=== PATIENT | female | born 1940 | race Caucasian/White ===

== ENCOUNTER 2017-11-03 12:50 | Emergency (ER) | payer OTHER, SELFPAY ==
[2017-11-03 12:54] VITALS: BP 123/67; PULSE 80; RESP 16; TEMP 37.9; O2SAT 98; BMI 29.8
--- NOTE | 2017-11-03 13:20 | DI.RAD.S_ITS ---
PROCEDURE: XR FOOT LT MIN 3V INDICATIONS: Ground level fall 1 week ago continued pain in left foot TECHNIQUE: 3 views of the foot were acquired. COMPARISON: None FINDINGS: Bones: No fractures or dislocations. No suspicious bony lesions. Degenerative joint disease is most evident at the tarsometatarsal junctions Soft tissues: No tibiotalar joint effusion. Achilles tendon appears normal. IMPRESSION: Tarsometatarsal osteoarthritis. No fracture is seen. Dictated by: Stephen Van M.D. on 11/03/2017 at 14:01 Approved by: Stephen Van M.D. on 11/03/2017 at 14:06
[2017-11-03 14:13] VITALS: BP 111/56; PULSE 72; RESP 14; TEMP 36.6; O2SAT 96
[2017-11-03] MEDS: ONDANSETRON 4 MG ODT PO (14:41)
[2017-11-03 14:59] LABS: Appearance Urine UA SL CLOUDY; Bilirubin Urine UA NEGATIVE (NEGATIVE); Color Urine UA YELLOW; Glucose Urine UA NEGATIVE (Normal); Ketones Urine UA NEGATIVE (NEGATIVE); Leukocyte Esterase Urine UA 2+ (NEGATIVE); Nitrite Urine UA POSITIVE (Negative); Occult Blood Urine UA TRACE-INTACT (Negative); Protein Urine UA NEGATIVE (Negative); Specific Gravity Urine UA 1.015 (1.000-1.035)
[2017-11-03 15:14] LABS: Bacteria Urine Moderate (10-30); RBC Urine 1-5/HPF (0-5/HPF); Squamous Epithelial Cell Urine 0-1 /HPF; WBC Urine 30-100/HPF (0-5/HPF)
[2017-11-03 15:15] LABS: Culture Indicated Urine Specimen Cultured
--- NOTE | 2017-11-03 15:31 | ED_ITS ---
HPI - Extremity Injury (Lower) <VICKI Giraldo - Last Filed: 11/03/17 22:22> General Chief Complaint: Extremity Injury, Lower Stated Complaint: Left Hip Swelling / Pain Time Seen by Provider: 11/03/17 13:07 Source: patient Mode of arrival: EMS Limitations: no limitations History of Present Illness HPI Narrative: 77-year-old female here for complaint of pain into her left foot over the past week. Patient states she had a ground level fall last week and suffered a left broken hip. She was seen in [facility] in [facility] and had surgery to her left hip. She states she does not have any complications to her left hip. She reports she has had ongoing left foot pain since this fall and she is concerned she may have broke her foot during the fall. She denies any other concerns or complaints at this time. Positive p.o. intake. She states she has a Peres catheter that was placed while she was in the hospital due to incontinence and is currently waiting to follow up with Urology for further evaluation MD complaint: foot injury Related Data Home Medications Medication Instructions Recorded Confirmed atenolol 50 mg PO DAILY #0 02/27/11 11/03/17 cetirizine 10 mg PO QDAY #0 02/27/11 11/03/17 potassium chloride 50 meq PO DAILY #0 02/27/11 11/03/17 levothyroxine [Synthroid] 0.05 mg PO QDAY #0 06/19/12 11/03/17 zolpidem [Ambien] 10 mg PO BEDTIME PRN #0 05/27/16 11/03/17 acetaminophen 1 - 2 cap PO Q4H PRN MDD 3000 mg 11/03/17 11/03/17 aspirin 81 mg PO BID 11/03/17 11/03/17 bisacodyl 5 - 10 mg PO PRN PRN 11/03/17 11/03/17 bisacodyl 10 mg LA DAILY PRN 11/03/17 11/03/17 docusate sodium 250 mg PO BID 11/03/17 11/03/17 magnesium hydroxide [Milk of 30 ml PO PRN PRN 11/03/17 11/03/17 Magnesia] ondansetron 4 mg PO Q8H PRN 11/03/17 11/03/17 oxycodone 5 mg PO Q4H PRN 11/03/17 11/03/17 oxycodone 10 mg PO Q4H PRN 11/03/17 11/03/17 oxycodone 15 mg PO Q4H PRN 11/03/17 11/03/17 pantoprazole 40 mg PO QPM 11/03/17 11/03/17 sennosides [senna] 1 - 2 tab PO DAILY 11/03/17 11/03/17 sodium phosphates [Fleet Enema] 1 ea LA PRN PRN 11/03/17 11/03/17 spironolactone 25 mg PO DAILY 11/03/17 11/03/17 tuberculin PPD [Aplisol] 0.1 ml INTRADERMAL .ONCE 11/03/17 11/03/17 Previous Rx's Medication Instructions Recorded ciprofloxacin HCl 500 mg PO BID #14 tab 11/03/17 Allergies Allergy/AdvReac Type Severity Reaction Status Date / Time amoxicillin [AMOXICILLIN] Allergy Severe RASH Unverified 07/02/17 12:04 Sulfa (Sulfonamide Allergy Severe WELTS Unverified 07/02/17 12:04 Antibiotics) tetanus toxoid, adsorbed Allergy Severe SWELLING Unverified 07/02/17 12:04 AT SITE, ARM SWELLING adhesive Allergy Mild RASH Unverified 07/02/17 12:04 Penicillins [PENICILLINS] Allergy Unknown RASH-UNKNOWN Unverified 07/02/17 12:04 SEVERITY PER PT morphine AdvReac Severe N/V Unverified 07/02/17 12:04 SWELLING AT SITE codeine AdvReac Mild ITCHING, Unverified 07/02/17 12:04 NAUSEA, CONSTIPATION propoxyphene AdvReac Mild N/V Unverified 07/02/17 12:04 Review of Systems <VICKI Giraldo - Last Filed: 11/03/17 22:22> Constitutional Denies chills, Denies fever(s), Denies lethargy and Denies weakness Eyes Denies change in vision, Denies eye discharge, Denies irritation and Denies loss of vision ENT Ears, Nose, Mouth, and Throat: Denies change in voice, Denies neck pain and Denies sore throat Cardiovascular Denies chest pain, Denies irregular heart rhythm, Denies lightheadedness, Denies palpitations, Denies dyspnea, Denies dyspnea on exertion and Denies orthopnea Respiratory Denies cough, Denies dyspnea, Denies dyspnea on exertion and Denies wheezing Gastrointestinal Gastrointestinal: Denies abdominal pain, Denies change in bowel habits, Denies diarrhea, Denies nausea and Denies vomiting Genitourinary Denies hematuria, Denies flank pain, Denies urinary incontinence and Denies urinary urgency Musculoskeletal Denies neck pain Comments: Left foot pain Integumentary/Breasts Denies pruritus, Denies erythema, Denies rash and Denies wounds Neurologic Denies confusion, Denies loss of vision and Denies weakness Psychiatric Denies anxiety, Denies confusion, Denies depression, Denies homicidal ideation and Denies suicidal ideation Endocrine Denies palpitations Hematologic/Lymphatic Denies easy bruising Allergic/Immunologic Denies wheezing Exam <VICKI Giraldo - Last Filed: 11/03/17 22:22> Initial Vital Signs Initial Vital Signs: Vital Signs Temperature 100.3 F H 11/03/17 12:54 Pulse Rate 80 11/03/17 12:54 Respiratory Rate 16 11/03/17 12:54 Blood Pressure 123/67 H 11/03/17 12:54 Pulse Oximetry 98 11/03/17 12:54 Const General: cooperative and well developed Nutritional Appearance: well nourished Orientation: alert, awake, oriented x3 and not confused [facility] Mouth: oral mucosae normal and moist mucous membranes Eyes Conjunctivae: conjunctivae normal Sclera: sclerae normal Pupils: PERRL EOM: EOM intact bilaterally Resp Effort & Inspection: normal respiratory effort, able to speak in complete sentences, no respiratory distress and no use of accessory muscles Auscultation: clear to auscultation bilaterally, no rales, no rhonchi and no wheezes Cardio Rate: regular rate Rhythm: regular rhythm Heart Sounds: no click, no gallops, no murmurs and no rubs Pulses: normal peripheral pulses GI Inspection: non-distended Palpation: soft, no hepatosplenomegaly, No guarding, No pulsatile mass and No tender Auscultation: normal bowel sounds Skin General: no rashes or lesions noted, No jaundice and No petechiae Neuro General: alert, oriented x3, gait normal and no focal motor deficits Speech: speech normal Extrem Other: Slight tenderness into the proximal dorsal aspect of the left foot. No swelling. No ecchymosis. No erythema. Distal sensation is intact. Distal range of motion is intact distal pulses intact <Armin Booker DO - Last Filed: 11/05/17 09:19> Initial Vital Signs Initial Vital Signs: Vital Signs Temperature 100.3 F H 11/03/17 12:54 Pulse Rate 80 11/03/17 12:54 Respiratory Rate 16 11/03/17 12:54 Blood Pressure 123/67 H 11/03/17 12:54 Pulse Oximetry 98 11/03/17 12:54 Course <VICKI Giraldo - Last Filed: 11/03/17 22:22> Orders Ordered: Discontinued Medications Ondansetron HCl (Zofran Odt) 4 mg PO NOW ONE Stop: 11/03/17 14:38 Last Admin: 11/03/17 14:41 Dose: 4 mg Vital Signs - 8 hr 11/03/17 12:54 11/03/17 14:13 Temperature 100.3 F H 97.8 F Pulse Rate 80 72 Respiratory Rate 16 14 Blood Pressure 123/67 H Blood Pressure [Left Arm] 111/56 L Pulse Oximetry 98 96 <Armin Booker DO - Last Filed: 11/05/17 09:19> Orders Ordered: Discontinued Medications Ondansetron HCl (Zofran Odt) 4 mg PO NOW ONE Stop: 11/03/17 14:38 Last Admin: 11/03/17 14:41 Dose: 4 mg Vital Signs - 8 hr 11/03/17 12:54 11/03/17 14:13 Temperature 100.3 F H 97.8 F Pulse Rate 80 72 Respiratory Rate 16 14 Blood Pressure 123/67 H Blood Pressure [Left Arm] 111/56 L Pulse Oximetry 98 96 MDM - Extremity Injury (Lower) <VICKI Giraldo - Last Filed: 11/03/17 22:22> Lab Data Lab Results 11/03/17 Range/Units 14:37 Urine Color Yellow Urine Appearance Sl cloudy Urine pH 7.0 (4.5-8.0) Ur Specific [place] 1.015 (1.000-1.035) Urine Protein Negative (Negative) Urine Glucose (UA) Negative (Normal) g/dL Urine Ketones Negative (NEGATIVE) Urine Occult Blood Trace-intact (Negative) Urine Nitrate Positive H (Negative) Urine Bilirubin Negative (NEGATIVE) Urine Urobilinogen 1.0 (0.2) E.U./dL Ur Leukocyte Esterase 2+ H (NEGATIVE) Urine RBC 1-5/hpf (0-5/HPF) Urine WBC 30-100/hpf H (0-5/HPF) Ur Squamous Epith Cells 0-1 /hpf Urine Bacteria Moderate (10-30) H (None) Ur Culture Indicated? Specimen cultured Micro UA Comment Not Reportable MDM Narrative Medical decision making narrative: X-ray the left foot was obtained was negative for any acute findings. X-ray does show arthritis to the tarsal area suspicious for her discomfort to the area and was probably exacerbated by the fall. Patient had low-grade fever 100 on arrival. Urinalysis indicates urinary tract infection. She is covered with ciprofloxacin, follow up with primary care provider in the next couple days for re-evaluation. Follow up with Neurology. Hip area appears to be healing well with no complications. Follow up with Orthopedics as scheduled. Currently prescribed pain management regimen as directed for pain. Return emergency room for any worsening symptoms. <Armin Booker DO - Last Filed: 11/05/17 09:19> Lab Data Lab Results 11/03/17 Range/Units 14:37 Urine Color Yellow Urine Appearance Sl cloudy Urine pH 7.0 (4.5-8.0) Ur Specific [place] 1.015 (1.000-1.035) Urine Protein Negative (Negative) Urine Glucose (UA) Negative (Normal) g/dL Urine Ketones Negative (NEGATIVE) Urine Occult Blood Trace-intact (Negative) Urine Nitrate Positive H (Negative) Urine Bilirubin Negative (NEGATIVE) Urine Urobilinogen 1.0 (0.2) E.U./dL Ur Leukocyte Esterase 2+ H (NEGATIVE) Urine RBC 1-5/hpf (0-5/HPF) Urine WBC 30-100/hpf H (0-5/HPF) Ur Squamous Epith Cells 0-1 /hpf Urine Bacteria Moderate (10-30) H (None) Ur Culture Indicated? Specimen cultured Micro UA Comment Not Reportable Discharge Plan Departure Patient Disposition: Home, Self-Care Clinical Impression: Acute pain of left foot, Urinary tract infection Discharge Date/Time: 11/03/17 15:45 Interventions: ED Discharge Assessment Last Done: 11/03/17 15:44 Instructions: DI for Foot Pain Activity Restrictions/Additional Instructions: X-ray the left foot was obtained was negative for any acute findings. X-ray does show arthritis to the areas were you do have discomfort and is probably exacerbated by the fall. Urinalysis indicates urinary tract infection. Urine prescribed an antibiotic called ciprofloxacin use as directed. Follow up with primary care provider in the next couple days for re-evaluation. Follow up with Neurology. Hip area appears to be healing well with no complications. Follow up with Orthopedics as scheduled. Currently prescribed pain management regimen as directed for pain. Return emergency room for any worsening symptoms. Prescriptions: New ciprofloxacin HCl 500 mg tablet 500 mg PO BID Qty: 14 RF: 0 No Action cetirizine 10 MG tablet 10 mg PO QDAY Qty: 0 RF: 0 potassium chloride 10 MEQ capsule, extended release 50 meq PO DAILY Qty: 0 RF: 0 atenolol 50 MG tablet 50 mg PO DAILY Qty: 0 RF: 0 levothyroxine [Synthroid] 50 MCG tablet 0.05 mg PO QDAY Qty: 0 RF: 0 zolpidem [Ambien] 10 MG tablet 10 mg PO BEDTIME PRN (Reason: Sleep) Qty: 0 RF: 0 tuberculin PPD [Aplisol] 5 tub. unit /0.1 mL Solution 0.1 ml Intradermal .ONCE RF: 0 sennosides [senna] 8.6 mg Tablet 1 - 2 tab PO DAILY RF: 0 pantoprazole 40 mg Tablet,Delayed Release (Dr/Ec) 40 mg PO QPM RF: 0 aspirin 81 mg Tablet,Delayed Release (Dr/Ec) 81 mg PO BID RF: 0 spironolactone 25 mg tablet 25 mg PO DAILY RF: 0 magnesium hydroxide [Milk of Magnesia] 400 mg/5 mL Suspension 30 ml PO PRN PRN (Reason: Constipation) RF: 0 bisacodyl 10 mg Suppository 10 mg LA DAILY PRN (Reason: Constipation) RF: 0 sodium phosphates [Fleet Enema] 19-7 gram/118 mL Enema 1 ea LA PRN PRN (Reason: Constipation) RF: 0 bisacodyl 5 mg Tablet,Delayed Release (Dr/Ec) 5 - 10 mg PO PRN PRN (Reason: mild to severe constipation) RF: 0 docusate sodium 250 mg Capsule 250 mg PO BID RF: 0 ondansetron 4 mg Tablet,Disintegrating 4 mg PO Q8H PRN (Reason: Nausea) RF: 0 oxycodone 5 mg Tablet 5 mg PO Q4H PRN (Reason: pain level 1-4) RF: 0 oxycodone 5 mg Tablet 15 mg PO Q4H PRN (Reason: Acid Reflux) RF: 0 oxycodone 5 mg Tablet 10 mg PO Q4H PRN (Reason: Abdominal Pain) RF: 0 acetaminophen 325 mg Capsule 1 - 2 cap PO Q4H MDD 3000 mg PRN (Reason: Pain, Mild) RF: 0 Referrals: Haile Hamm MD [Primary Care Provider] - <Armin Booker DO - Last Filed: 11/05/17 09:19> [facility] ED Attending Aleksandarature Attestation: I was immediately available in the department for consultation. Documentation has been reviewed. I agree with assessment and plan.
== END 2017-11-03 15:45 | disposition home or self-care (01) ==
PROVIDERS: Emergency Provider Nurse Practitioner Family; Family Provider Family Medicine; PCP Family Medicine
DX: M25.672 Stiffness of left ankle, not elsewhere classified (principal); N39.0 Urinary tract infection, site not specified
CPT/HCPCS: 73630; 81001; 87077; 87086; 87186; 99282; 99284

== ENCOUNTER → 2018-01-13 12:29 | Outpatient (CLI) | payer OTHER, SELFPAY ==
--- NOTE | 2018-01-13 | DI.RAD.S_ITS ---
This blank DEXA report has been sent in error by the PACS system. The correct and complete report will be forthcoming in 1-2 days. Thank you for your patience and understanding. Dictated by: Gopal Joseph M.D. on 01/13/2018 at 13:26 Approved by: Gopal Joseph M.D. on 01/13/2018 at 13:27
== END ==
PROVIDERS: Family Provider Family Medicine; PCP Family Medicine; Visit Provider Family Medicine
DX: M81.0 Age-related osteoporosis without current pathological fracture (principal); Z78.0 Asymptomatic menopausal state; E07.9 Disorder of thyroid, unspecified; Z90.722 Acquired absence of ovaries, bilateral; Z87.891 Personal history of nicotine dependence
CPT/HCPCS: 77080

== ENCOUNTER → 2018-11-20 10:59 | Outpatient (CLI) | payer OTHER, SELFPAY ==
--- NOTE | 2018-11-20 | DI.RAD.S_ITS ---
PROCEDURE: XR LUMBAR SPINE 2-3V INDICATIONS: left side low back pain x 1 week; prior surgeries TECHNIQUE: 3 views of the lumbar spine were acquired. COMPARISON: [facility], CT, ANGIOGRAPHY ABDOMEN AND PELVIS, 05/08/2017, 7:47. Outside Facility, RG, XR PELVIS 1V, 10/27/2017, 18:09. [facility], CR, L-SPINE 2-3 VIEWS, 05/31/2016, 13:29. [facility], CR, L-SPINE 2-3 VIEWS, 10/10/2011, 14:21. FINDINGS: Bones: 5 [id number] vertebrae are present. There is normal bony alignment maintained by stable appearing prior posterior fusion procedure with transverse pedicle screws and vertical fixation rods with interbody disc cage prosthesis devices spanning from L4-S1.. No vertebral body compression fractures. No suspicious bony lesions. Soft tissues: Overlying bowel gas pattern is normal. No suspicious soft tissue calcifications. Note is made of stent graft involving area of prior documented aortic aneurysm. IMPRESSION: Postoperative changes as discussed, source of new left-sided low back pain for one week is not found. Aortic stent graft placement, crossing from the abdominal aorta into the pelvis bilaterally. Dictated by: Gopal Joseph M.D. on 11/20/2018 at 11:47 Approved by: Gopal Joseph M.D. on 11/20/2018 at 11:50
== END ==
PROVIDERS: PCP Student in an Organized Health Care Education/Training Program; Visit Provider Nurse Practitioner Family
DX: M54.5 Low back pain (principal); Z98.1 Arthrodesis status
CPT/HCPCS: 72100